=== PATIENT | male | born 1950 | race Caucasian/White ===

== ENCOUNTER 2021-11-03 16:59 | Emergency (ER) | payer OTHER ==
[2021-11-03 17:10] VITALS: BP 161/98; PULSE 108; TEMP 98.2; BMI 25.2
[2021-11-03] MEDS ORDERED: ACETAMINOPHEN 325 MG TABLET (FP) PO ONE (17:39)
[2021-11-03 18:38] LABS: BASO % 0.4 % (0-2.0); EOS % 0.3 % (0-4.5); HEMATOCRIT 43.3 % (35.4-49); HEMOGLOBIN 14.8 GM/dL (11.7-16.9); LYMPH % 23.5 % (8-40); MCH 32.6 pg (25.7-33.7); MEAN CELL VOLUME 95.9 fl (80-96); MEAN PLT VOLUME 7.2 fl (7.5-11.1); MONO % 10.5 % (3.8-10.2); NEUT % 65.3 % (42.8-82.8); PLATELET COUNT 261 10^3/uL (134-434); RBC 4.52 M/mm3 (4.00-5.60); RDW 13.1 % (11.9-15.9); WHITE BLOOD COUNT 6.4 K/mm3 (4.0-10.0)
[2021-11-03 19:17] LABS: CALCIUM 8.7 mg/dL (8.5-10.1)
[2021-11-03 19:18] LABS: ALBUMIN 3.7 g/dl (3.4-5.0); BLOOD UREA NITROGEN 10.7 mg/dL (7-18)
[2021-11-03 19:21] LABS: CREATININE 0.7 mg/dL (0.55-1.3)
[2021-11-03 19:22] LABS: BILIRUBIN,TOTAL 0.2 mg/dL (0.2-1)
[2021-11-03 19:23] LABS: TOT PROT 7.3 g/dl (6.4-8.2)
== END 2021-11-03 21:05 | disposition home or self-care (01) ==
LOC: JER 16:59
DX: S06.0X0A Concussion without loss of consciousness, initial encounter (principal); R07.9 Chest pain, unspecified; W22.8XXA Striking against or struck by other objects, initial encounter
CPT/HCPCS: 36415; 70450-TC; 70486-TC; 71046-TC-FY; 80053; 84484; 85025; 93005; 93010; 99285-25